=== PATIENT | male | born 2000 | race Caucasian/White ===

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

== ENCOUNTER 2018-05-16 16:02 | Emergency (ER) | payer SELFPAY ==
[~2018-05-16] VITALS: Ht 177.8 cm; Wt 68.2 kg
[2018-05-16 16:10] VITALS: Ht 177.8 cm; Wt 68.2 kg
[2018-05-16] MEDS ORDERED: NOVOLOG100 UNIT/1 SQ ×2 (16:13→19:42)
[2018-05-16] MEDS ORDERED: LANTUS SQ (16:14)
[2018-05-16 16:53] LABS: APPEARANCE CLEAR (CLEAR); BILIRUBIN NEGATIVE (NEGATIVE); COLOR STRAW (YELLOW); GLUCOSE 1000 mg/dL (NEGATIVE); KETONE NEGATIVE (NEGATIVE); NITRITE NEGATIVE (NEGATIVE); PROTEIN NEGATIVE (NEGATIVE); UROBILINOGEN NORMAL (NORMAL)
[2018-05-16 16:54] LABS: BASOPHILS 0.3 % (0-2); EOSINOPHILS 1.6 % (0-7); HEMATOCRIT 44.2 % (42.0-54.0); HEMOGLOBIN 16.2 g/dL (13.5-17.5); IMMATURE GRANULOCYTES 0.2 % (0-5); LYMPHOCYTES 25.6 % (15-50); MCH 32.2 pg (26.0-34.0); MCHC 36.7 g/dL (31.0-37.0); MCV 87.9 fL (80.0-100.0); MEAN PLATELET VOLUME 10.3 fL (7.4-10.4); MONOCYTES 4.7 % (2-11); NEUTROPHILS 67.6 % (40-80); PLATELET COUNT 286 10x3/uL (130-400); RBC 5.03 10x6/uL (4.20-6.10); RDW 11.9 % (11.5-14.5); WBC 9.2 10x3/uL (4.8-10.8)
[2018-05-16 17:25] LABS: ALBUMIN 3.6 g/dL (3.4-5.0); ALKALINE PHOSPHATASE 122 U/L (46-116); ALT (SGPT) 16 U/L (10-68); BILIRUBIN - TOTAL 0.22 mg/dL (0.2-1.3); CALCIUM 9.4 mg/dL (8.5-10.1); CARBON DIOXIDE 28.7 mmol/L (21.0-32.0); CHLORIDE - SERUM 95 mmol/L (98-107); CREATININE - SERUM 1.1 mg/dL (0.6-1.3); POTASSIUM - SERUM 4.5 mmol/L (3.5-5.1); PROTEIN - SERUM 7.6 g/dL (6.4-8.2); SODIUM 134 mmol/L (136-145); UREA NITROGEN 12 mg/dL (7-18); eGFR NON AFRICAN AMERICAN > 90 mL/min (90-120)
[2018-05-16 17:45] LABS: AMYLASE - SERUM 29 U/L (25-115); CALC OSMOLALITY 298 mosm/kg (275-300); GLUCOSE 660 mg/dL (74-106); LIPASE 110 U/L (73-393)
[2018-05-16 20:07] VITALS: BP 132/85
== END 2018-05-16 20:07 | disposition home or self-care (01) ==
LOC: D.ER 16:02
PROVIDERS: Family Medicine
DX: E11.8 Type 2 diabetes mellitus with unspecified complications (principal); Z91.19 Patient's noncompliance with other medical treatment and regimen; F17.200 Nicotine dependence, unspecified, uncomplicated

== ENCOUNTER 2019-05-05 15:28 | Emergency (ER) | payer SELFPAY ==
[~2019-05-05] VITALS: Ht 177.8 cm; Wt 66.5 kg
[~2019-05-05 15:28] MED LIST: LANTUS SQ; NOVOLOG100 UNIT/1 SQ
[2019-05-05 15:50] VITALS: Ht 177.8 cm; Wt 66.5 kg
[2019-05-05] MEDS ORDERED: VOLTAREN75 MG PO (16:18)
[2019-05-05] MEDS ORDERED: VIBRAMYCIN 100100 MG PO (16:18)
[2019-05-05 17:22] VITALS: BP 124/71
[2019-05-09 15:40] VITALS: Ht 177.8 cm; Wt 66.5 kg
== END 2019-05-05 17:20 | disposition home or self-care (01) ==
LOC: D.ER 15:28
DX: L03.312 Cellulitis of back [any part except buttock and flank] (principal)

== ENCOUNTER 2019-05-08 13:00 | Inpatient (IN) | payer MEDICAID ==
[~2019-05-08] VITALS: Ht 177.8 cm; Wt 66.2 kg
[~2019-05-08 13:00] MED LIST changes: +VIBRAMYCIN 100100 MG PO; +VOLTAREN75 MG PO
[2019-05-08 13:54] LABS: BASOPHILS 0.1 % (0-2); EOSINOPHILS 0.6 % (0-7); HEMATOCRIT 37.8 % (42.0-54.0); HEMOGLOBIN 13.7 g/dL (13.5-17.5); IMMATURE GRANULOCYTES 0.2 % (0-5); LYMPHOCYTES 12.7 % (15-50); MCHC 36.2 g/dL (31.0-37.0); MCV 88.3 fL (80.0-100.0); MEAN PLATELET VOLUME 9.9 fL (7.4-10.4); MONOCYTES 7.4 % (2-11); PLATELET COUNT 341 10x3/uL (130-400); RBC 4.28 10x6/uL (4.20-6.10); RDW 11.5 % (11.5-14.5); WBC 12.6 10x3/uL (4.8-10.8)
[2019-05-08 13:59] LABS: KETONE - SERUM NEGATIVE (NEGATIVE)
[2019-05-08 14:07] LABS: APPEARANCE CLEAR (CLEAR); BILIRUBIN NEGATIVE (NEGATIVE); COLOR STRAW (YELLOW); GLUCOSE 250 mg/dL (NEGATIVE); KETONE SMALL mg/dL (NEGATIVE); NITRITE NEGATIVE (NEGATIVE); PROTEIN NEGATIVE (NEGATIVE); SPECIFIC GRAVITY 1.005 (1.005-1.020); UROBILINOGEN NORMAL (NORMAL)
[2019-05-08 14:07] LABS: ALBUMIN 3.4 g/dL (3.4-5.0); ALKALINE PHOSPHATASE 83 U/L (46-116); ALT (SGPT) 16 U/L (10-68); BILIRUBIN - TOTAL 0.88 mg/dL (0.2-1.3); CALC OSMOLALITY 294 mosm/kg (275-300); CALCIUM 8.5 mg/dL (8.5-10.1); CARBON DIOXIDE 29.7 mmol/L (21.0-32.0); CHLORIDE - SERUM 100 mmol/L (98-107); CREATININE - SERUM 0.9 mg/dL (0.6-1.3); MAGNESIUM - SERUM 1.7 mg/dL (1.8-2.4); POTASSIUM - SERUM 3.1 mmol/L (3.5-5.1); PROTEIN - SERUM 7.6 g/dL (6.4-8.2); SODIUM 139 mmol/L (136-145); UREA NITROGEN 11 mg/dL (7-18); eGFR NON AFRICAN AMERICAN > 90 mL/min (90-120)
[2019-05-08 14:10] LABS: GLUCOSE 425 mg/dL (74-106)
[2019-05-08 14:25] VITALS: BP 110/56
[2019-05-08 15:39] VITALS: BP 112/69
[2019-05-08 17:41] VITALS: BP 118/68; BMI 20.9
--- NOTE | 2019-05-08 19:12 | MORECARE ---
CASE MANAGEMENT DISCHARGE SUMMARY PATIENT: MARILYN DELA CRUZ UNIT: [id number] ADM DATE: 05/08/19 AGE: 18 : [birth year] SEX: M ROOM/BED: D.2206 AUTHOR: PIPER NUNEZ PHYSICIAN: REFERRING PHYSICIAN: RISHABH ROBBINS MD DATE OF SERVICE: 05/08/19 Discharge Plan Patient Name: MARILYN DELA CRUZ Facility: [facility]:[place] : 2000 Planned Disposition: Home Anticipated Discharge Date: 05/11/19 Discharge Date: Expected LOS: 3 Initial Reviewer: [email or web address] Initial Review Date: 05/08/2019 Generated: 05/08/19 8:11 pm Patient Name: MARILYN DELA CRUZ Page 37684 at 1912 All edits/amendments must be made on the electronic document DICTATION DATE: 05/08/191910 RN ADMIT: POLINA 05/08/191910 RPT#: [id number] DC DATE: STATUS: ADM IN [facility] [address] [place] [address] END OF REPORT
--- NOTE | 2019-05-08 19:18 | MORECARE ---
CASE MANAGEMENT DISCHARGE SUMMARY PATIENT: MARILYN DELA CRUZ UNIT: [id number] ADM DATE: 05/08/19 AGE: 18 : [birth year] SEX: M ROOM/BED: D.2206 AUTHOR: PIPER NUNEZ PHYSICIAN: REFERRING PHYSICIAN: RISHABH ROBBINS MD DATE OF SERVICE: 05/08/19 Discharge Plan Patient Name: MARILYN DELA CRUZ Facility: [facility]:[place] : 2000 Planned Disposition: Home Anticipated Discharge Date: 05/11/19 Discharge Date: Expected LOS: 3 Initial Reviewer: [email or web address] Initial Review Date: 05/08/2019 Generated: 05/08/19 8:18 pm DCPIA - Discharge Planning Initial Assessment Updated by [email or web address]: Adrianna Hanson on 05/08/19 7:17 pm * Is the patient Alert and Oriented? Yes * How many steps to enter\exit or inside your home? 10 * PCP No PCP * [facility] * Preadmission Environment Home with Family * ADLs Independent * Equipment Glucometer * List name and contact numbers for known caregivers / representatives who currently or will assist patient after discharge: Rina Posada - girlfriend - [phone] * Verbal permission to speak to the caregivers and representatives has been obtained from the patient. Yes * Community resources currently utilized None * Additional services required to return to the preadmission environment? No * Can the patient safely return to the preadmission environment? Yes * Has this patient been hospitalized within the prior 30 days at any hospital? No Last DP export: 05/08/19 6:12 Patient Name: MARILYN DELA CRUZ Page 83354 at 1918 All edits/amendments must be made on the electronic document DICTATION DATE: 05/08/191917 TRAINING GENERALIST: POLINA 05/08/191917 RPT#: [id number] DC DATE: STATUS: ADM IN [facility] [address] [place] [address] END OF REPORT
--- NOTE | 2019-05-08 19:31 | MORECARE ---
CASE MANAGEMENT DISCHARGE SUMMARY PATIENT: MARILYN DELA CRUZ UNIT: [id number] ADM DATE: 05/08/19 AGE: 18 : [birth year] SEX: M ROOM/BED: D.2206 AUTHOR: PIPER NUNEZ PHYSICIAN: REFERRING PHYSICIAN: RISHABH WARD MD DATE OF SERVICE: 05/08/19 Discharge Plan Patient Name: MARILYN DELA CRUZ Facility: [facility]:[place] : 2000 Planned Disposition: Home Anticipated Discharge Date: 05/11/19 Discharge Date: Expected LOS: 3 Initial Reviewer: [email or web address] Initial Review Date: 05/08/2019 Generated: 05/08/19 8:30 pm Comments DCP- Discharge Planning Updated by [email or web address]: Adrianna Hanson on 05/08/19 6:[address] DC PLAN: Return home with girlfriend - Non compliant with his DM. ANTICIPATED DC NEEDS: May need medication assistance. CM met with patient and his girlfriend to complete initial dc planning assessment. CM educated patient on the CM role and verbal consent given by patient to complete assessment. CM verified patient's address, phone number, and emergency contact phone numbers. Patient lives at home with his girlfriend. He reports he is independent in his care. He is non compliant with his diabetes. Reports he hasn't taken his insulin in months. He reports she smokes marijuana but denied other drug use. CM provided him with a good RX card, requested [employer] meet with patient to assist with Medicaid, and gave patient information on [facility] since he doesn't have a PCP. At discharge patient plans to return home and feels this is a safe discharge. Dr. Ward in room and had a long discussion regarding diabetes compliance and the complications from non-compliance. Patient stated he has neuropathy from his feet up to his knees. He also reports he has ED as well. CM discussed availability of home health, rehab services, and medical equipment. Patient denied known discharge needs at this time. Patient reports his girlfriend will transport him home at time of discharge. CM will continue to follow and will assist as needed with dc plans/needs. Adrianna Hanson RN, [facility] DCPIA - Discharge Planning Initial Assessment Updated by [email or web address]: Adrianna Hanson on 05/08/19 7:17 pm * Is the patient Alert and Oriented? Yes * How many steps to enter\exit or inside your home? 10 * PCP No PCP * [facility] [place] * Preadmission Environment Home with Family * ADLs Independent * Equipment Glucometer * List name and contact numbers for known caregivers / representatives who currently or will assist patient after discharge: Rina Posada - girlfriend - [phone] * Verbal permission to speak to the caregivers and representatives has been obtained from the patient. Yes * Community resources currently utilized None * Additional services required to return to the preadmission environment? No * Can the patient safely return to the preadmission environment? Yes * Has this patient been hospitalized within the prior 30 days at any hospital? No Last DP export: 05/08/19 6:18 Patient Name: MARILYN DELA CRUZ Page 82543 at 1931 All edits/amendments must be made on the electronic document DICTATION DATE: 05/08/191929 RELIGIOUS EDUCATION DIRECTOR: POLINA 05/08/191929 RPT#: [id number] DC DATE: STATUS: ADM IN [facility] [address] [place] [address] END OF REPORT
[2019-05-08 20:00] VITALS: BP 96/59
[2019-05-08 20:42] LABS: UDS - AMPHET NEGATIVE QUAL (NEGATIVE); UDS - BARB NEGATIVE QUAL (NEGATIVE); UDS - BENZO NEGATIVE QUAL (NEGATIVE); UDS - COCAINE NEGATIVE QUAL (NEGATIVE); UDS - OPIATE POSITIVE QUAL (NEGATIVE); UDS - PCP NEGATIVE QUAL (NEGATIVE); UDS - THC POSITIVE QUAL (NEGATIVE)
[2019-05-09] VITALS: BP 110/58
[2019-05-09 04:00] VITALS: BP 100/46
[2019-05-09 06:14] LABS: BASOPHILS 0.2 % (0-2); EOSINOPHILS 2.2 % (0-7); HEMATOCRIT 37.6 % (42.0-54.0); HEMOGLOBIN 13.1 g/dL (13.5-17.5); IMMATURE GRANULOCYTES 0.2 % (0-5); LYMPHOCYTES 21.9 % (15-50); MCH 31.5 pg (26.0-34.0); MCHC 34.8 g/dL (31.0-37.0); MEAN PLATELET VOLUME 10.5 fL (7.4-10.4); MONOCYTES 7.7 % (2-11); NEUTROPHILS 67.8 % (40-80); PLATELET COUNT 330 10x3/uL (130-400); RBC 4.16 10x6/uL (4.20-6.10); RDW 11.6 % (11.5-14.5); WBC 11.6 10x3/uL (4.8-10.8)
[2019-05-09 06:19] LABS: MCV 90.4 fL (80.0-100.0)
[2019-05-09 06:31] LABS: CALC OSMOLALITY 282 mosm/kg (275-300); CALCIUM 8.4 mg/dL (8.5-10.1); CARBON DIOXIDE 28.4 mmol/L (21.0-32.0); CHLORIDE - SERUM 106 mmol/L (98-107); CREATININE - SERUM 0.6 mg/dL (0.6-1.3); GLUCOSE 134 mg/dL (74-106); MAGNESIUM - SERUM 1.5 mg/dL (1.8-2.4); PHOSPHOROUS 3.7 mg/dL (2.5-4.9); SODIUM 142 mmol/L (136-145); UREA NITROGEN 7 mg/dL (7-18); eGFR NON AFRICAN AMERICAN > 90 mL/min (90-120)
[2019-05-09 09:18] VITALS: BP 103/61
[2019-05-09 09:31] VITALS: BMI 20.9
[2019-05-09 13:33] VITALS: BP 107/58
[2019-05-09 15:40] VITALS: Ht 177.8 cm; Wt 66.2 kg
[2019-05-09 18:07] VITALS: BP 107/65
[2019-05-09 21:04] VITALS: BP 117/63
[2019-05-10 00:57] VITALS: BP 108/59
[2019-05-10 04:15] VITALS: BP 104/62
[2019-05-10 05:23] LABS: BASOPHILS 0.2 % (0-2); EOSINOPHILS 2.8 % (0-7); HEMATOCRIT 37.4 % (42.0-54.0); IMMATURE GRANULOCYTES 0.1 % (0-5); LYMPHOCYTES 27.7 % (15-50); MCH 31.3 pg (26.0-34.0); MCHC 34.8 g/dL (31.0-37.0); MCV 90.1 fL (80.0-100.0); MEAN PLATELET VOLUME 10.5 fL (7.4-10.4); MONOCYTES 7.3 % (2-11); NEUTROPHILS 61.9 % (40-80); PLATELET COUNT 329 10x3/uL (130-400); RBC 4.15 10x6/uL (4.20-6.10); RDW 11.6 % (11.5-14.5)
[2019-05-10 05:39] LABS: CALC OSMOLALITY 283 mosm/kg (275-300); CALCIUM 8.3 mg/dL (8.5-10.1); CARBON DIOXIDE 28.4 mmol/L (21.0-32.0); CHLORIDE - SERUM 107 mmol/L (98-107); CREATININE - SERUM 0.6 mg/dL (0.6-1.3); GLUCOSE 161 mg/dL (74-106); MAGNESIUM - SERUM 1.7 mg/dL (1.8-2.4); PHOSPHOROUS 3.9 mg/dL (2.5-4.9); POTASSIUM - SERUM 3.6 mmol/L (3.5-5.1); SODIUM 142 mmol/L (136-145); UREA NITROGEN 6 mg/dL (7-18); VANCOMYCIN - TROUGH 4.3 ug/mL (10.0-20.0); eGFR NON AFRICAN AMERICAN > 90 mL/min (90-120)
[2019-05-10 08:54] VITALS: BP 102/60
[2019-05-10 13:13] VITALS: BP 104/58
[2019-05-10 16:36] VITALS: BP 120/74
[2019-05-10 20:31] VITALS: BP 118/69
[2019-05-11] VITALS (10 sets, daily range): BP systolic 106–126; BP diastolic 57–66
[2019-05-11 05:35] LABS: BASOPHILS 0.2 % (0-2); IMMATURE GRANULOCYTES 0.2 % (0-5); LYMPHOCYTES 27.1 % (15-50); MCH 31.6 pg (26.0-34.0); MCV 90.3 fL (80.0-100.0); MEAN PLATELET VOLUME 10.2 fL (7.4-10.4); NEUTROPHILS 62.5 % (40-80); RBC 4.43 10x6/uL (4.20-6.10); RDW 11.5 % (11.5-14.5); WBC 9.4 10x3/uL (4.8-10.8)
[2019-05-11 05:43] LABS: PLATELET COUNT 417 10x3/uL (130-400)
[2019-05-11 05:45] LABS: CALC OSMOLALITY 273 mosm/kg (275-300); CALCIUM 8.6 mg/dL (8.5-10.1); CHLORIDE - SERUM 103 mmol/L (98-107); CREATININE - SERUM 0.6 mg/dL (0.6-1.3); GLUCOSE 119 mg/dL (74-106); MAGNESIUM - SERUM 1.5 mg/dL (1.8-2.4); PHOSPHOROUS 3.9 mg/dL (2.5-4.9); POTASSIUM - SERUM 3.2 mmol/L (3.5-5.1); SODIUM 138 mmol/L (136-145); eGFR NON AFRICAN AMERICAN > 90 mL/min (90-120)
[2019-05-11 05:50] LABS: UREA NITROGEN 4 mg/dL (7-18)
[2019-05-12 00:40] VITALS: BP 118/64
[2019-05-12 04:00] VITALS: BP 119/61
[2019-05-12 05:32] LABS: CALCIUM 8.8 mg/dL (8.5-10.1); CARBON DIOXIDE 30.1 mmol/L (21.0-32.0); CHLORIDE - SERUM 101 mmol/L (98-107); MAGNESIUM - SERUM 1.8 mg/dL (1.8-2.4); PHOSPHOROUS 4.6 mg/dL (2.5-4.9); SODIUM 139 mmol/L (136-145)
[2019-05-12 05:38] LABS: CALC OSMOLALITY 286 mosm/kg (275-300); CREATININE - SERUM 0.8 mg/dL (0.6-1.3); GLUCOSE 293 mg/dL (74-106); POTASSIUM - SERUM 4.4 mmol/L (3.5-5.1); UREA NITROGEN 8 mg/dL (7-18); eGFR NON AFRICAN AMERICAN > 90 mL/min (90-120)
[2019-05-12 05:40] LABS: BASOPHILS 0.2 % (0-2); EOSINOPHILS 0.8 % (0-7); HEMATOCRIT 38.8 % (42.0-54.0); HEMOGLOBIN 13.7 g/dL (13.5-17.5); IMMATURE GRANULOCYTES 0.2 % (0-5); LYMPHOCYTES 22.9 % (15-50); MCH 31.6 pg (26.0-34.0); MCHC 35.3 g/dL (31.0-37.0); MCV 89.6 fL (80.0-100.0); MONOCYTES 6.5 % (2-11); NEUTROPHILS 69.4 % (40-80); PLATELET COUNT 419 10x3/uL (130-400); RBC 4.33 10x6/uL (4.20-6.10); RDW 11.4 % (11.5-14.5); WBC 11.2 10x3/uL (4.8-10.8)
--- NOTE | 2019-05-12 08:26 | OP ---
PATIENT NAME: MARILYN DELA CRUZ MEDICAL RECORD: [id number] :[birth year] LOCATION:[facility] ADMISSION DATE:05/08/19 SURGEON: CHATO FULLER MD DATE OF OPERATION: 05/11/2019 SURGEON: Chato Fuller MD (JJ) PREOPERATIVE DIAGNOSIS: Pilonidal cyst with abscess. POSTOPERATIVE DIAGNOSIS: Pilonidal cyst with abscess. PROCEDURE PERFORMED: Incision and drainage of pilonidal cyst abscess. ANESTHESIA: General. COMPLICATIONS: None. SPECIMENS: Wound cultures. ESTIMATED BLOOD LOSS: 20 cc. Case was grossly contaminated. OPERATIVE COURSE: After consent was obtained, the patient was taken to the operating room. A timeout was taken to confirm the correct patient and procedure. General anesthesia was administered via endotracheal intubation. The patient was then placed into the prone position on the operating table. The perineum and pilonidal cyst were prepped and draped in typical sterile fashion, A 20 cc of local anesthetic were injected circumferentially. There was active purulent drainage from the wound. Wound cultures were obtained and sent for Gram stain culture and sensitivity. The opening was extended approximately 4 cm in the cephalad direction, open up the cyst cavity. The mucous lining of the cyst cavity was excised using electrocautery. The abscess cavity was excised to fresh clean bleeding edges using electrocautery. The wound was then copiously irrigated. The wound was then packed with hydrogen peroxide and covered with sterile dressings. At the end of the case, all needle and instrument counts were correct. No complications occurred. The patient tolerated procedure well and postop was transferred to recovery room in satisfactory condition. TRANSINT:[id number] Voice Confirmation ID: [id number] DOCUMENT ID: [id number] CHATO FULLER MD at 0826 CC: [id number] DICTATION DATE: 05/11/19 1400 DESULFURIZER OPERATOR: 05/11/19 1417 ADM IN [place] [id number] [place] [id number]
[2019-05-12 08:29] VITALS: BP 107/68
[2019-05-12] MEDS ORDERED: HYDROCODON-ACE1 EAC7 PO (09:06)
[2019-05-12] MEDS ORDERED: CLEOCIN HCL300 MG PO (11:02)
[2019-05-12] MEDS ORDERED: SULFAMETHOXAZOL1 TA2 PO (11:02)
[2019-05-12] MEDS ORDERED: FLORAJEN3 CAPS460 MG PO (11:02)
[2019-05-12 12:38] VITALS: BP 102/61
--- NOTE | 2019-05-12 14:04 | MORECARE ---
CASE MANAGEMENT DISCHARGE SUMMARY PATIENT: MARILYN DELA CRUZ UNIT: [id number] ADM DATE: 05/08/19 AGE: 18 : [birth year] SEX: M ROOM/BED: D.2206 AUTHOR: MAYRADOC PHYSICIAN: REFERRING PHYSICIAN: RISHABH WARD MD DATE OF SERVICE: 05/12/19 Discharge Plan Patient Name: MARILYN DELA CRUZ Facility: [facility]:[place] : 2000 Planned Disposition: Home Anticipated Discharge Date: 05/11/19 Discharge Date: Expected LOS: 3 Initial Reviewer: [email or web address] Initial Review Date: 05/08/2019 Generated: 05/12/19 3:04 pm Comments DCP- Discharge Planning Updated by [email or web address]: Martha Romero on 05/12/19 12:[address] Patient will be discharging home today, his mom will do his dressing change. He does not have insurance coverage at this point DCP- Discharge Planning Updated by [email or web address]: Adrianna Hanson on 05/08/19 6:[address] DC PLAN: Return home with girlfriend - Non compliant with his DM. ANTICIPATED DC NEEDS: May need medication assistance. CM met with patient and his girlfriend to complete initial dc planning assessment. CM educated patient on the CM role and verbal consent given by patient to complete assessment. CM verified patient's address, phone number, and emergency contact phone numbers. Patient lives at home with his girlfriend. He reports he is independent in his care. He is non compliant with his diabetes. Reports he hasn't taken his insulin in months. He reports she smokes marijuana but denied other drug use. CM provided him with a good RX card, requested [employer] meet with patient to assist with Medicaid, and gave patient information on [facility] since he doesn't have a PCP. At discharge patient plans to return home and feels this is a safe discharge. Dr. Ward in room and had a long discussion regarding diabetes compliance and the complications from non-compliance. Patient stated he has neuropathy from his feet up to his knees. He also reports he has ED as well. CM discussed availability of home health, rehab services, and medical equipment. Patient denied known discharge needs at this time. Patient reports his girlfriend will transport him home at time of discharge. CM will continue to follow and will assist as needed with dc plans/needs. Adrianna Hanson RN, [facility] DCPIA - Discharge Planning Initial Assessment Updated by [email or web address]: Adrianan Hanson on 05/08/19 7:17 pm * Is the patient Alert and Oriented? Yes * How many steps to enter\exit or inside your home? 10 * PCP No PCP * Pharmacy [facility] * Preadmission Environment Home with Family * ADLs Independent * Equipment Glucometer * List name and contact numbers for known caregivers / representatives who currently or will assist patient after discharge: Rina Posada - juniorfriend - [phone] * Verbal permission to speak to the caregivers and representatives has been obtained from the patient. Yes * Community resources currently utilized None * Additional services required to return to the preadmission environment? No * Can the patient safely return to the preadmission environment? Yes * Has this patient been hospitalized within the prior 30 days at any hospital? No Last DP export: 05/08/19 6:31 Patient Name: MARILYN DELA CRUZ Page 67010 at 1404 All edits/amendments must be made on the electronic document DICTATION DATE: 05/12/191403 SUPERVISOR LAST MODEL DEPARTMENT: POLINA 05/12/191403 RPT#: [id number] DC DATE: STATUS: ADM IN [facility] [address] [place] [address] END OF REPORT
--- NOTE | 2019-05-13 07:51 | MORECARE ---
CASE MANAGEMENT DISCHARGE SUMMARY PATIENT: MARILYN DELA CRUZ UNIT: [id number] ADM DATE: 05/08/19 AGE: 18 : [birth year] SEX: M ROOM/BED: D.2206 AUTHOR: MAYRA,DOC PHYSICIAN: REFERRING PHYSICIAN: RISHABH WARD MD DATE OF SERVICE: 05/13/19 Discharge Plan Patient Name: MARILYN DELA CRUZ Facility: [facility]:[place] : 2000 Planned Disposition: Home Anticipated Discharge Date: 05/11/19 Discharge Date: 05/12/2019 Expected LOS: 3 Initial Reviewer: [email or web address] Initial Review Date: 05/08/2019 Generated: 05/13/19 8:51 am Comments DCP- Discharge Planning Updated by [email or web address]: Martha Romero on 05/12/19 12:[address] Patient will be discharging home today, his mom will do his dressing change. He does not have insurance coverage at this point DCP- Discharge Planning Updated by [email or web address]: Adrianna Hanson on 05/08/19 6:[address] DC PLAN: Return home with girlfriend - Non compliant with his DM. ANTICIPATED DC NEEDS: May need medication assistance. CM met with patient and his girlfriend to complete initial dc planning assessment. CM educated patient on the CM role and verbal consent given by patient to complete assessment. CM verified patient's address, phone number, and emergency contact phone numbers. Patient lives at home with his girlfriend. He reports he is independent in his care. He is non compliant with his diabetes. Reports he hasn't taken his insulin in months. He reports she smokes marijuana but denied other drug use. CM provided him with a good RX card, requested [employer] meet with patient to assist with Medicaid, and gave patient information on [facility] since he doesn't have a PCP. At discharge patient plans to return home and feels this is a safe discharge. Dr. Ward in room and had a long discussion regarding diabetes compliance and the complications from non-compliance. Patient stated he has neuropathy from his feet up to his knees. He also reports he has ED as well. CM discussed availability of home health, rehab services, and medical equipment. Patient denied known discharge needs at this time. Patient reports his girlfriend will transport him home at time of discharge. CM will continue to follow and will assist as needed with dc plans/needs. Adrianna Hanson RN, [facility] DCPIA - Discharge Planning Initial Assessment Updated by [email or web address]: Adrianna Hanson on 05/08/19 7:17 pm * Is the patient Alert and Oriented? Yes * How many steps to enter\exit or inside your home? 10 * PCP No PCP * Pharmacy [facility] * Preadmission Environment Home with Family * ADLs Independent * Equipment Glucometer * List name and contact numbers for known caregivers / representatives who currently or will assist patient after discharge: Rina Posada - girlfriend - [phone] * Verbal permission to speak to the caregivers and representatives has been obtained from the patient. Yes * Community resources currently utilized None * Additional services required to return to the preadmission environment? No * Can the patient safely return to the preadmission environment? Yes * Has this patient been hospitalized within the prior 30 days at any hospital? No Last DP export: 05/12/19 1:04 Patient Name: MARILYN DELA CRUZ Page [id number] at 0751 All edits/amendments must be made on the electronic document DICTATION DATE: 05/13/19750 JAVA SUPPORT ENGINEER: POLINA 05/13/19750 RPT#: [id number] DC DATE:05/12/19 STATUS: DIS IN [facility] [address] [place] [address] END OF REPORT
[2019-05-15 17:08] LABS: AEROBE ID Final report (())
== END 2019-05-12 15:25 | disposition home or self-care (01) | DRG 580 ==
LOC: D.ER 13:00 → D.MS 16:36
PROVIDERS: Family Medicine; Surgery; ADMIT Internal Medicine Nephrology; ATTEND Internal Medicine Nephrology
PROC: 0QB10ZZ Excision of Sacrum, Open Approach (ICD-10-PCS; principal; 2019-05-11 11:00)
DX: L05.01 Pilonidal cyst with abscess (principal); F17.203 Nicotine dependence unspecified, with withdrawal; E11.65 Type 2 diabetes mellitus with hyperglycemia; E87.6 Hypokalemia; E83.42 Hypomagnesemia; Z91.120 Patient's intentional underdosing of medication regimen due to financial hardship